=== PATIENT | female | born 1955 | race Caucasian/White ===

== ENCOUNTER 2016-12-26 08:50 | Emergency (ER) | payer MEDICAID, OTHER ==
[2016-12-26 09:03] VITALS: PULSE 69; RESP 16; TEMP 98; O2SAT 99
[2016-12-26 09:08] VITALS: BP 151/93
--- NOTE | 2016-12-26 09:12 | ED PDOC ---
Arrival/HPI <Krishan Morris - Last Filed: 12/26/16 09:57> - General Historian: Patient <[email or web address] A - Last Filed: 12/26/16 11:34> - General Chief Complaint: Lower Extremity Problem/Injury Time Seen by Provider: 12/26/16 09:09 - History of Present Illness Narrative History of Present Illness (Text): 12/26/16 09:10 61yo female who present with complained of right 5th toe pain s/p trauma an hour ago. she states she "stubbed her toe against a door". Denies any other complaint. (Jd Hyde A) Past Medical History - Provider Review Nursing Documentation Reviewed: Yes - Infectious Disease Hx of Infectious Diseases: None - Psychiatric Hx Substance Use: No - Surgical History Hx Musculoskeletal Surgery: Yes (Left wrist surgery) <Jd Hyde Elsa - Last Filed: 12/26/16 11:34> Family/Social History - Physician Review Nursing Documentation Reviewed: Yes Family/Social History: Unknown Family HX Smoking Status: Never Smoked Hx Alcohol Use: Yes Frequency of alcohol use: Socially Hx Substance Use: No <Jd Hyde A - Last Filed: 12/26/16 11:34> Allergies/Home Meds <Krishan Morris - Last Filed: 12/26/16 09:57> <Jd Hyde A - Last Filed: 12/26/16 11:34> Allergies/Adverse Reactions: Allergies No Known Allergies Allergy (Verified 12/26/16 09:02) Review of Systems - Physician Review All systems were reviewed & negative as marked: Yes - Review of Systems Constitutional: Normal Eyes: Normal ENT: Normal Respiratory: Normal Cardiovascular: Normal Gastrointestinal: Normal Genitourinary Female: Normal Musculoskeletal: Arthralgias (Right 5th toe pain) Skin: Normal Neurological: Normal Endocrine: Normal Hemo/Lymphatic: Normal Psychiatric: Normal <Jd Hyde A - Last Filed: 12/26/16 11:34> Physical Exam Vital Signs Reviewed: Yes Temperature: Afebrile Blood Pressure: Normal Pulse: Regular Respiratory Rate: Normal Appearance: Positive for: Well-Appearing, Non-Toxic, Comfortable Pain Distress: None Mental Status: Positive for: Alert and Oriented X 3 - Systems Exam Head: Present: Atraumatic, Normocephalic Pupils: Present: PERRL Extroacular Muscles: Present: EOMI Conjunctiva: Present: Normal Mouth: Present: Moist Mucous Membranes Neck: Present: Normal Range of Motion Respiratory/Chest: Present: Clear to Auscultation, Good Air Exchange. No: Respiratory Distress, Accessory Muscle Use Cardiovascular: Present: Regular Rate and Rhythm, Normal S1, S2. No: Murmurs Abdomen: Present: Normal Bowel Sounds. No: Tenderness, Distention, Peritoneal Signs Back: Present: Normal Inspection Upper Extremity: Present: Normal Inspection. No: Cyanosis, Edema Lower Extremity: Present: NORMAL PULSES, Tenderness (Right 5th toe), Swelling ( Right 5th toe), Deformity, Neurovascularly Intact, Capillary Refill < 2 s. No: Edema, Normal ROM, Erythema, Temperature Abnormalties Neurological: Present: GCS=15, CN II-XII Intact, Speech Normal Skin: Present: Warm, Dry, Normal Color. No: Rashes Psychiatric: Present: Alert, Oriented x 3, Normal Insight, Normal Concentration <Jd Hyde - Last Filed: 12/26/16 11:34> Vital Signs Temp Pulse Resp BP Pulse Ox 12/26/16 09:07 151/93 H 12/26/16 08:57 98 F 69 16 99 Medical Decision Making <Krishan Morris - Last Filed: 12/26/16 09:57> <Jd Hyde - Last Filed: 12/26/16 11:34> ED Course and Treatment: 12/26/16 10:06 right foot xray - Angulated fracture of right fifth phalanx noted with intra articular involvement. Toe reduced and mariana taped. Ortho shoe given. Referred to a Body Joiner. TRT ED for any new or worsening symptoms. (Jd Hyde) - RAD Interpretation Radiology Orders: 12/26/16 09:09 FOOT RIGHT 5TH DIGIT (TOE) [RAD] Stat - Medication Orders Current Medication Orders: Discontinued Medications Tramadol HCl (Ultram) 50 mg PO STAT STA Stop: 12/26/16 09:10 Last Admin: 12/26/16 09:53 Dose: 50 MG - PA / DIRECTOR OF FIELD SALES / Resident Statement MD/DO has reviewed & agrees with the documentation as recorded. <Krishan Morris - Last Filed: 12/26/16 09:57> Disposition/Present on Arrival <Krishan Morris - Last Filed: 12/26/16 09:57> - Present on Arrival Any Indicators Present on Arrival: No History of DVT/PE: No History of Uncontrolled Diabetes: No Urinary Catheter: No History of Decub. Ulcer: No History Surgical Site Infection Following: None - Disposition Have Diagnosis and Disposition been Completed?: Yes Disposition Time: 10:05 Patient Plan: Discharge <Jd Hyde - Last Filed: 12/26/16 11:34> - Disposition Diagnosis: Toe fracture Disposition: HOME/ ROUTINE Condition: STABLE Discharge Instructions (ExitCare): Toe Fracture (ED) Additional Instructions: Follow up with a Body Joiner Return to ED for any new or worsening symptoms Prescriptions: traMADol [Ultram] 50 mg PO TID #12 tab Referrals: PCP,NO [Primary Care Provider] - Follow up with primary Vicki Ibarra DPM [Staff Provider] - Follow up with primary
--- NOTE | 2016-12-26 10:20 | RAD ---
PROCEDURE: Right Foot Radiographs. HISTORY: toe pain s/p trauma COMPARISON: None. FINDINGS: BONES: Normal. No fracture. JOINTS: There is a transverse angulated fracture of the neck of the 5th proximal phalanx. There is also an intra-articular component SOFT TISSUES: Normal. OTHER FINDINGS: None. IMPRESSION: There is a transverse angulated fracture of the neck of the 5th proximal phalanx. There is also an intra-articular component
== END 2016-12-26 10:24 | disposition home or self-care (01) ==
LOC: ED 08:50 → MERGE 08:50 → ED 10:24
DX: S92.511A Displaced fracture of proximal phalanx of right lesser toe(s), initial encounter for closed fracture (principal); W22.8XXA Striking against or struck by other objects, initial encounter; Y92.9 Unspecified place or not applicable